=== PATIENT | male | born 1940 | race Asian ===

== ENCOUNTER 2018-01-30 10:31 | Emergency (ER) | payer MEDICARE ==
[~2018-01-30] VITALS: Ht 170.2 cm; Wt 85.0 kg
[~2018-01-30 10:31] MED LIST: ASPI-621 PO; CHOL2000 PO; CITA10TA4 PO; DIVA125C PO; FINA5TAB PO; INSU100C SQ-INSULIN; INSU100I28 SQ-INSULIN; MELA3TAB45 PO; METO25TA35 PO; SIMV5TAB5 PO; TAMS-11 PO; TRAZ50TA18 PO
[2018-01-30 12:20] LABS: BASOPHILS # (AUTO) 0.01 x10^3/uL (0-0.1); BASOPHILS % (AUTO) 0 % (0-1); EOSINOPHILS # (AUTO) 0.08 x10^3/uL (0-0.4); EOSINOPHILS % (AUTO) 1 % (1-7); LYMPHOCYTES # (AUTO) 1.24 x10^3/uL (1-3.4); LYMPHOCYTES % (AUTO) 8 % (22-44); MD NO; MEAN CORPUSCULAR HEMOGLOBIN 30.3 pg (27.5-34.5); MEAN CORPUSCULAR HGB CONC 33.6 g/dL (33.2-36.2); MEAN CORPUSCULAR VOLUME 90.2 fL (81-97); MEAN PLATELET VOLUME 8.1 fL (7.4-10.4); MONOCYTES # (AUTO) 0.61 x10^3/uL (0.2-0.8); MONOCYTES % (AUTO) 4 % (2-9); NEUTROPHILS # (AUTO) 12.86 x10^3/uL (1.8-6.8); NEUTROPHILS % (AUTO) 87 % (42-75); PLATELET COUNT 228 x10^3/uL (130-400); RED BLOOD COUNT 5.35 x10^6/uL (4.38-5.82); RED CELL DISTRIBUTION WIDTH 14.3 % (9.4-14.8)
[2018-01-30 12:27] LABS: ALANINE AMINOTRANSFERASE 25 U/L (12-78); ALBUMIN 3.6 g/dL (3.4-5.0); ANION GAP 8 mmol/L (5-15); CALCIUM 9.1 mg/dL (8.5-10.1); CHLORIDE 102 mmol/L (98-107)
[2018-01-30 12:31] LABS: ALKALINE PHOSPHATASE 122 U/L (45-117); BILIRUBIN,TOTAL 0.6 mg/dL (0.2-1.0); CREATININE 1.23 mg/dL (0.7-1.3); TOTAL PROTEIN 8.5 g/dL (6.4-8.2); TROPONIN I < 0.015 ng/mL (0.000-0.045)
[2018-01-30 13:41] LABS: MICROSCOPIC NOT IND
[2018-01-30 13:45] LABS: CULTURE INDICATED? NO
[2018-01-30 16:00] VITALS: BP 134/70
== END 2018-01-30 16:59 | disposition home or self-care (01) ==
LOC: ED 10:51
DX: R41.82 Altered mental status, unspecified (principal); J15.8 Pneumonia due to other specified bacteria; B96.89 Other specified bacterial agents as the cause of diseases classified elsewhere; E11.9 Type 2 diabetes mellitus without complications; F03.90 Unspecified dementia, unspecified severity, without behavioral disturbance, psychotic disturbance, mood disturbance, and anxiety; I10 Essential (primary) hypertension; Z79.4 Long term (current) use of insulin; Z79.82 Long term (current) use of aspirin; Z86.73 Personal history of transient ischemic attack (TIA), and cerebral infarction without residual deficits
CPT/HCPCS: 36415; 70450; 71045; 80053; 81003; 82140; 84484; 85025; 93005; 99285